=== PATIENT | female | born 1975 | race American Indian/Alaskan Native ===

== ENCOUNTER 2021-03-13 13:46 | Emergency (ER) | payer MEDICARE, SELFPAY ==
[2021-03-13] MEDS ORDERED: ZIPRASIDONE MESYLATE 20 MG VIAL IM ONE (13:52)
--- NOTE | 2021-03-13 13:59 | Emergency Department Report ---
ED Psych HPI - General Chief Complaint: Psych Stated Complaint: MENTAL HEALTH Time Seen by Provider: 03/13/21 13:55 Source: patient Mode of arrival: Ambulatory - History of Present Illness Initial Comments: Patient is 45 years old female with history of bipolar disorder. Patient brought to the emergency room via police department after patient was found walking in traffic. Patient is very agitated with pressured speech. Patient is obviously responding to internal stimuli. Unable to obtain more history from this patient at this moment. Patient received 20 mg of Geodon IM. Complaint: altered mental status -: unknown Associated Psychiatric Symptoms: racing thoughts Treatments Prior to Arrival: placed on mental he - Related Data Home Medications Medication Instructions Recorded Confirmed Last Taken Elderberry Fruit and Flower [Black 1 tab PO DAILY 03/13/21 03/13/21 Unknown Elderberry 575 mg Cap] Ferrous Sulfate [Iron 325 MG] 325 mg PO DAILY 03/13/21 03/13/21 Unknown [place] Carbonate ER [Lithobid ER] 600 mg PO BID 03/13/21 03/13/21 Unknown Prazosin HCl 0.5 mg PO QHS 03/13/21 03/13/21 Unknown diphenhydrAMINE [Benadryl CAP] 25 mg PO Q4H PRN 03/13/21 03/13/21 Unknown Allergies Allergy/AdvReac Type Severity Reaction Status Date / Time nut - unspecified [nut] Allergy Unknown Verified 06/28/15 12:43 ED Review of Systems ROS: Stated complaint: MENTAL HEALTH Other details as noted in HPI Comment: Unobtainable due to pts medical conditions ED Past Medical Hx - Past Medical History Previous Medical History?: Yes Hx Arthritis: Yes Hx Psychiatric Treatment: Yes (Bipolar, PTSD, Anxiety) Additional medical history: lipademia. venous insufficieny - Surgical History Past Surgical History?: Yes Additional Surgical History: Gastric bypass. tonsils. tubiligation - Social History Smoking Status: Current Every Day Smoker Substance Use Type: None - Medications Home Medications: Home Medications Medication Instructions Recorded Confirmed Last Taken Type Elderberry Fruit and Flower [Black 1 tab PO DAILY 03/13/21 03/13/21 Unknown History Elderberry 575 mg Cap] Ferrous Sulfate [Iron 325 MG] 325 mg PO DAILY 03/13/21 03/13/21 Unknown History [place] Carbonate ER [Lithobid ER] 600 mg PO BID 03/13/21 03/13/21 Unknown History Prazosin HCl 0.5 mg PO QHS 03/13/21 03/13/21 Unknown History diphenhydrAMINE [Benadryl CAP] 25 mg PO Q4H PRN 03/13/21 03/13/21 Unknown History ED Physical Exam - General Limitations: Altered Mental Status General appearance: alert, anxious, other (agitated) - Head Head exam: Present: atraumatic, normocephalic, normal inspection - Eye Eye exam: Present: normal appearance - ENT ENT exam: Present: normal exam, normal orophraynx, mucous membranes moist - Neck Neck exam: Present: normal inspection. Absent: tenderness, meningismus - Respiratory Respiratory exam: Present: normal lung sounds bilaterally - Cardiovascular Cardiovascular Exam: Present: regular rate, normal rhythm, normal heart sounds - GI/Abdominal GI/Abdominal exam: Present: soft, normal bowel sounds. Absent: distended, tenderness, guarding, rebound, rigid, organomegaly, mass, bruit, pulsatile mass, hernia - Extremities Exam Extremities exam: Present: normal inspection, full ROM, normal capillary refill. Absent: pedal edema, calf tenderness - Back Exam Back exam: Present: normal inspection, full ROM. Absent: CVA tenderness (R), CVA tenderness (L) - Neurological Exam Neurological exam: Present: alert, CN II-XII intact, normal gait. Absent: motor sensory deficit - Psychiatric Psychiatric exam: Present: agitated, manic - Skin Skin exam: Present: warm, intact, normal color ED Course Vital Signs 03/13/21 03/13/21 03/13/21 13:49 20:49 22:16 Temperature 98 F 97.8 F Pulse Rate 87 63 Respiratory 20 18 18 Rate Blood Pressure 154/82 Blood Pressure 124/97 [Right] O2 Sat by Pulse 96 100 98 Oximetry 03/14/21 03/14/21 03/14/21 01:00 11:37 19:56 Temperature 97.9 F 97.9 F 97.9 F Pulse Rate 76 67 63 Respiratory 18 20 18 Rate Blood Pressure Blood Pressure 136/90 127/90 119/89 [Right] O2 Sat by Pulse 99 100 100 Oximetry 03/15/21 03/15/21 02:05 10:03 Temperature 98.2 F 97.3 F L Pulse Rate 68 83 Respiratory 16 18 Rate Blood Pressure Blood Pressure 112/62 138/94 [Right] O2 Sat by Pulse 100 100 Oximetry ED Medical Decision Making - Lab Data Result diagrams: 03/13/21 14:32 03/14/21 10:52 Critical care attestation.: If time is entered above; I have spent that time in minutes in the direct care of this critically ill patient, excluding procedure time. ED Disposition Clinical Impression: Suicidal ideation Disposition: [id number]/TX-[id number] PSY HOSP/PSY UNIT Is pt being admited?: No Condition: Stable Referrals: PRIMARY CARE, [Primary Care Provider] - 3-5 Days
[2021-03-13 14:52] LABS: Basophils % (Auto) 0.5 % (0.0-1.8); Eosinophils # (Auto) 0.1 K/mm3 (0.0-0.4); Eosinophils % (Auto) 1.8 % (0.0-4.3); Hematocrit 34.9 % (30.3-42.9); Hemoglobin 11.4 gm/dl (10.1-14.3); Lymphocytes # (Auto) 1.7 K/mm3 (1.2-5.4); Lymphocytes % (Auto) 26.5 % (13.4-35.0); Mean Corpuscular HGB Conc 33 % (30-34); Mean Corpuscular Volume 89 fl (79-97); Monocytes # (Auto) 0.4 K/mm3 (0.0-0.8); Monocytes % (Auto) 5.9 % (0.0-7.3); Platelet Count 214 K/mm3 (140-440); Red Blood Count 3.92 M/mm3 (3.65-5.03); Red Cell Distribution Width 15.3 % (13.2-15.2)
[2021-03-13 15:04] LABS: Blood Urea Nitrogen 13 mg/dL (7-17); Calcium 8.9 mg/dL (8.4-10.2); Hemolysis Index 2
[2021-03-13 15:57] LABS: BUN/Creatinine Ratio 22
[2021-03-13 17:37] LABS: Bilirubin,Urine NEG (Negative); Blood,Urine NEG (Negative); Color,Urine Amber (Yellow); Hyaline Casts,Urine 2 /LPF; Mucus,Urine 3+ /HPF
[2021-03-13 17:53] LABS: Amphetamine Screen,Urine PRESUMPTIVE NEGATIVE; Benzodiazepines Screen,Urine PRESUMPTIVE NEGATIVE; Cannabinoid Screen,Urine PRESUMPTIVE NEGATIVE; Cocaine Screen,Urine PRESUMPTIVE NEGATIVE; Methadone Screen,Urine PRESUMPTIVE NEGATIVE; Opiate Screen,Urine PRESUMPTIVE NEGATIVE
[2021-03-13] MEDS ORDERED: HALOPERIDOL LACTATE 5 MG/1 ML INJ IM ONE (21:57)
[2021-03-13] MEDS ORDERED: LORazepam 2 MG/ML VIAL IM STA (21:57)
[2021-03-14] MEDS ORDERED: POTASSIUM CHLORIDE ER 20 MEQ TAB PO ONE ×2 (00:47→05:45)
--- NOTE | 2021-03-14 10:36 | Event Note ---
Date: 03/14/21 Patient is very quiet today. No agitation overnight. Vital signs stable. Labs reviewed and potassium 3.4. Patient received potassium yesterday. Repeat potassium level ordered. Waiting for psychiatric team for disposition.
--- NOTE | 2021-03-14 11:12 | Consultation ---
History of Present Illness - Reason for Consult Consult date: 03/14/21 Reason for consult: agitation - History of Present Psychiatric Illness Per ED Note: Patient is 45 years old female with history of bipolar disorder. Patient brought to the emergency room via police department after patient was found walking in traffic. Patient is very agitated with pressured speech. Patient is obviously responding to internal stimuli. Unable to obtain more history from this patient at this moment. 45y/o Jeremías Zaragoza was seen today, she is agitated, talking loudly and having flight of ideas. She is responding to internal stimuli. Her speech is pressured and disorganized. The patient states that people are pissing her off, she then says "for stuff like this." The patient says "I'm tired of all this stupid stuff that happens from birthday to birthday." She says she's tired of her family trying to tell her what to do and what to say. She says "this hospital and that one over there do this to me all the time." She is pointing at the wall when she says "that hospital." The patient denies SI/HI, stating "I never want to hurt anybody but this type of stuff is getting me real upset. People act like I can't control myself." PAST PSYCHIATRIC HISTORY Diagnoses: bipolar Suicide attempts or Self-harm behavior: Denies Prior psychiatric hospitalizations: Yes Substance Abuse history: Nicotine Previous psychiatric medications tried: unable to answer Outpatient treatment: Yes PAST MEDICAL HISTORY: None reported Family Psychiatric History: None reported or documented SOCIAL HISTORY Marital Status: Single Living Arrangements: states alone Employment Status: disabled Access to guns/weapons: Denies Education: high school History of Abuse: none reported Legal History: none REVIEW OF SYSTEMS Constitutional: Negative for weight loss ENT: Negative for stridor Respiratory: Negative for cough or hemoptysis All other systems reviewed and are negative MENTAL STATUS EXAMINATION General Appearance and Behavior: Age appropriate, not wearing appropriate clothes, poor eye contact, cooperative polite with questioning. Cooperation: Unengaged Psychomotor Behavior: Psychomotor agitation Mood: upset, agitated Affect and affective range: Restricted Thought Process: illogical Thought Content: responding to internal stimuli Speech: Normal tone and pace Suicidal Ideation: Denies Homicidal Ideation: Denies HI Hallucinations: Auditory Delusions: None elicited Insight and Judgment: Impaired insight and judgment Memory: Impaired Attention: Divided attention impaired Orientation: Alert, oriented Assessment: Bipolar Treatment Plan 1013 Start Risperidone 0.5mg po BID Start Depakote DR 125mg po BID Start Trazodone 50mg po qhs Risks, benefits and alternatives of medications discussed with the patient, questions answered and consent obtained from patient. PSYCHOTHERAPY: Supportive psychotherapy provided MEDICAL: Per primary team DELIRIUM PRECAUTIONS: Please re-orient patient frequently, keep lights on during the day, and minimize benzodiazepines and opiates as these medications could worsen patient's confusion. 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 Case discussed with Dr. Cabral who agrees with current disposition FOLLOW-UP: Will follow Thank you for the consult. Please contact with any questions and/or concerns. Medications and Allergies Allergies Allergy/AdvReac Type Severity Reaction Status Date / Time nut - unspecified [nut] Allergy Unknown Verified 06/28/15 12:43 Home Medications Medication Instructions Recorded Confirmed Last Taken Type Elderberry Fruit and Flower [Black 1 tab PO DAILY 03/13/21 03/13/21 Unknown History Elderberry 575 mg Cap] Ferrous Sulfate [Iron 325 MG] 325 mg PO DAILY 03/13/21 03/13/21 Unknown History [place] Carbonate ER [Lithobid ER] 600 mg PO BID 03/13/21 03/13/21 Unknown History Prazosin HCl 0.5 mg PO QHS 03/13/21 03/13/21 Unknown History diphenhydrAMINE [Benadryl CAP] 25 mg PO Q4H PRN 03/13/21 03/13/21 Unknown History Mental Status Exam - Vital signs Last Vital Signs Temp 97.9 F 03/14/21 01:00 Pulse 76 03/14/21 01:00 Resp 18 03/14/21 01:00 BP 136/90 03/14/21 01:00 Pulse Ox 99 03/14/21 01:00 Results Result Diagrams: 03/13/21 14:32 03/13/21 14:32 Abnormal lab results 03/13/21 03/13/21 03/13/21 Range/Units 14:32 14:32 14:32 RDW 15.3 H (13.2-15.2) % Potassium 3.4 L (3.6-5.0) mmol/L Ur Specific [place] (1.003-1.030) Salicylates < 0.3 L (2.8-20.0) mg/dL Acetaminophen (10.0-30.0) ug/mL 03/13/21 03/13/21 Range/Units 14:32 17:07 RDW (13.2-15.2) % Potassium (3.6-5.0) mmol/L Ur Specific [place] 1.032 H (1.003-1.030) Salicylates (2.8-20.0) mg/dL Acetaminophen 5.0 L (10.0-30.0) ug/mL All other labs normal.
[2021-03-14] MEDS: DIVALPROEX DR 125 MG TAB PO SCH ×2 (12:54→21:50)
[2021-03-14] MEDS ORDERED: ZIPRASIDONE MESYLATE 20 MG VIAL IM ONE ×2 (15:28→15:30)
[2021-03-14] MEDS ORDERED: WATER FOR INJ Sterile (PF) 10 ML ONE (15:28)
[2021-03-14] MEDS: risperiDONE 0.25 MG TAB PO SCH (21:48)
[2021-03-14] MEDS ORDERED: traZODone 50 MG TAB PO SCH (22:00)
[2021-03-15 10:03] VITALS: BP 138/94
--- NOTE | 2021-03-15 10:48 | Event Note ---
Date: 03/15/21 No overnight issues. Vital signs stable. Waiting for placement.
--- NOTE | 2021-03-15 11:04 | Progress Note ---
Subjective - Reason for Consult Consult date: 03/15/21 Reason for consult: psychosis - Chief Complaint Chief complaint: The patient was seen today. She is pacing in the [place]. She is delusional and paranoid. Her thoughts are disorganized. 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 Advised the patient that this was a smoke free facility. She says "I know. My thoughts are clear." She denies SI/HI or hallucinations. REVIEW OF SYSTEMS Constitutional: Negative for weight loss ENT: Negative for stridor Respiratory: Negative for cough or hemoptysis All other systems reviewed and are negative MENTAL STATUS EXAMINATION General Appearance and Behavior: Age appropriate, not wearing appropriate clothes, poor eye contact, cooperative polite with questioning. Cooperation: Unengaged Psychomotor Behavior: Psychomotor agitation Mood: upset, agitated Affect and affective range: Restricted Thought Process: illogical Thought Content: responding to internal stimuli Speech: Normal tone and pace Suicidal Ideation: Denies Homicidal Ideation: Denies HI Hallucinations: Auditory Delusions: None elicited Insight and Judgment: Impaired insight and judgment Memory: Impaired Attention: Divided attention impaired Orientation: Alert, oriented Assessment: Bipolar Treatment Plan 1013 Increased Risperidone 1mg po BID Continue Depakote DR 125mg po BID Continue Trazodone 50mg po qhs Risks, benefits and alternatives of medications discussed with the patient, questions answered and consent obtained from patient. PSYCHOTHERAPY: Supportive psychotherapy provided MEDICAL: Per primary team DELIRIUM PRECAUTIONS: Please re-orient patient frequently, keep lights on during the day, and minimize benzodiazepines and opiates as these medications could worsen patient's confusion. 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 Case discussed with Dr. Cabral who agrees with current disposition FOLLOW-UP: Will follow Thank you for the consult. Please contact with any questions and/or concerns. Mental Status Exam - Vital signs Last Vital Signs Temp 97.3 F L 03/15/21 10:03 Pulse 83 03/15/21 10:03 Resp 18 03/15/21 10:03 BP 138/94 03/15/21 10:03 Pulse Ox 100 03/15/21 10:03
[2021-03-15] MEDS: risperiDONE 0.25 MG TAB PO SCH (11:27)
[2021-03-15] MEDS: DIVALPROEX DR 125 MG TAB PO SCH (11:27)
[2021-03-15] MEDS ORDERED: risperiDONE 1 MG TAB PO SCH (12:00)
== END 2021-03-15 14:42 ==
LOC: EEVIPCON 13:46 → ED 13:46
DX: R41.82 Altered mental status, unspecified (principal); R45.1 Restlessness and agitation; Z20.822 Contact with and (suspected) exposure to COVID-19; F31.9 Bipolar disorder, unspecified; F41.9 Anxiety disorder, unspecified; M19.90 Unspecified osteoarthritis, unspecified site; F17.200 Nicotine dependence, unspecified, uncomplicated; Z98.51 Tubal ligation status; Z91.010 Allergy to peanuts; Z98.890 Other specified postprocedural states; Z79.899 Other long term (current) drug therapy
CPT/HCPCS: 36415; 80048; 80307; 81001; 84132; 84703; 85025; 96372; 99285; J1630; J2060; J3486; U0003; 80320; G0480

== ENCOUNTER 2022-02-26 14:57 | Emergency (ER) | payer MEDICARE ==
--- NOTE | 2022-02-26 16:10 | Emergency Department Report ---
ED General Adult HPI - General Chief complaint: Alcohol Stated complaint: LOWER ABD /ALCHOL Time Seen by Provider: 02/26/22 15:56 Source: patient, EMS Mode of arrival: Stretcher Limitations: No Limitations - History of Present Illness Initial comments: The patient presents to the emergency department with a chief complaint of alcohol abuse. Patient states she is here to get detox for alcohol. Patient states she contacted anchor prior to coming and was told to come to the emergency department for clearance. Patient states she drinks 2 bottles of wine daily with the last drink being yesterday. Patient states she has been drinking this quantity for quite some time. She denies visual or auditory loose [place]. Patient also denies chest pain, shortness breath, headache. -: Gradual Severity scale (0 -10): 0 Consistency: constant Improves with: none Worsens with: none Associated Symptoms: denies other symptoms Treatments Prior to Arrival: none - Related Data Home Medications Medication Instructions Recorded Confirmed Last Taken Elderberry Fruit and Flower [Black 1 tab PO DAILY 03/13/21 02/26/22 Unknown Elderberry 575 mg Cap] Ferrous Sulfate [Iron 325 MG] 325 mg PO DAILY 03/13/21 02/26/22 Unknown [place] Carbonate ER [Lithobid ER] 600 mg PO BID 03/13/21 02/26/22 Unknown Prazosin HCl 0.5 mg PO QHS 03/13/21 02/26/22 Unknown diphenhydrAMINE [Benadryl CAP] 25 mg PO Q4H PRN 03/13/21 02/26/22 Unknown Allergies Allergy/AdvReac Type Severity Reaction Status Date / Time nut - unspecified [nut] Allergy Unknown Verified 02/26/22 15:02 ED Review of Systems ROS: Stated complaint: LOWER ABD /ALCHOL Other details as noted in HPI Comment: All other systems reviewed and negative Constitutional: denies: chills, fever Eyes: denies: eye pain, eye discharge, vision change ENT: denies: ear pain, throat pain Respiratory: denies: cough, shortness of breath, wheezing Cardiovascular: denies: chest pain, palpitations Endocrine: no symptoms reported Gastrointestinal: denies: abdominal pain, nausea, diarrhea Genitourinary: denies: urgency, dysuria, discharge Musculoskeletal: denies: back pain, joint swelling, arthralgia Skin: denies: rash, lesions Neurological: denies: headache, weakness, paresthesias Psychiatric: denies: anxiety, depression Hematological/Lymphatic: denies: easy bleeding, easy bruising ED Past Medical Hx - Past Medical History Hx Arthritis: Yes Hx Psychiatric Treatment: Yes (Bipolar, PTSD, Anxiety) Additional medical history: lipademia. venous insufficieny - Surgical History Additional Surgical History: Gastric bypass. tonsils. tubiligation - Social History Smoking Status: Current Every Day Smoker Substance Use Type: Alcohol - Medications Home Medications: Home Medications Medication Instructions Recorded Confirmed Last Taken Type Elderberry Fruit and Flower [Black 1 tab PO DAILY 03/13/21 02/26/22 Unknown History Elderberry 575 mg Cap] Ferrous Sulfate [Iron 325 MG] 325 mg PO DAILY 03/13/21 02/26/22 Unknown History [place] Carbonate ER [Lithobid ER] 600 mg PO BID 03/13/21 02/26/22 Unknown History Prazosin HCl 0.5 mg PO QHS 03/13/21 02/26/22 Unknown History diphenhydrAMINE [Benadryl CAP] 25 mg PO Q4H PRN 03/13/21 02/26/22 Unknown History ED Physical Exam - General Limitations: No Limitations General appearance: alert, in no apparent distress - Head Head exam: Present: atraumatic, normocephalic - Eye Eye exam: Present: normal appearance, PERRL, EOMI - ENT ENT exam: Present: mucous membranes moist - Neck Neck exam: Present: normal inspection - Respiratory Respiratory exam: Present: normal lung sounds bilaterally. Absent: respiratory distress - Cardiovascular Cardiovascular Exam: Present: normal rhythm, tachycardia. Absent: systolic mu rmur, diastolic murmur, rubs, gallop - GI/Abdominal GI/Abdominal exam: Present: soft, normal bowel sounds. Absent: distended, tenderness - Extremities Exam Extremities exam: Present: normal inspection - Back Exam Back exam: Present: normal inspection - Neurological Exam Neurological exam: Present: alert, oriented X3, CN II-XII intact. Absent: motor sensory deficit - Psychiatric Psychiatric exam: Present: normal affect, normal mood - Skin Skin exam: Present: warm, dry, intact, normal color. Absent: rash ED Course Vital Signs 02/26/22 02/26/22 02/26/22 15:01 15:44 15:45 Temperature 98.4 F Pulse Rate 93 H 77 Respiratory 18 Rate Blood Pressure 124/87 Blood Pressure 158/96 [Left] O2 Sat by Pulse 99 99 99 Oximetry ED Medical Decision Making - Lab Data Result diagrams: 02/26/22 16:23 02/26/22 16:23 Lab Results 02/26/22 02/26/22 02/26/22 Range/Units 16:23 16:23 16:23 WBC 9.5 (4.5-11.0) K/mm3 RBC 4.41 (3.65-5.03) M/mm3 Hgb 12.6 (10.1-14.3) gm/dl Hct 39.1 (30.3-42.9) % MCV 89 (79-97) fl MCH 29 (28-32) pg MCHC 32 (30-34) % RDW 17.5 H (13.2-15.2) % Plt Count 144 (140-440) K/mm3 Lymph % (Auto) 15.0 (13.4-35.0) % [place] % (Auto) 5.3 (0.0-7.3) % Eos % (Auto) 0.1 (0.0-4.3) % Baso % (Auto) 0.3 (0.0-1.8) % Lymph # (Auto) 1.4 (1.2-5.4) K/mm3 [place] # (Auto) 0.5 (0.0-0.8) K/mm3 Eos # (Auto) 0.0 (0.0-0.4) K/mm3 Baso # (Auto) 0.0 (0.0-0.1) K/mm3 Seg Neutrophils % 79.3 H (40.0-70.0) % Seg Neutrophils # 7.5 (1.8-7.7) K/mm3 PT (12.2-14.9) Sec. INR (0.87-1.13) APTT (24.2-36.6) Sec. Sodium 135 L (137-145) mmol/L Potassium 4.2 (3.6-5.0) mmol/L Chloride 92.0 L (98-107) mmol/L Carbon Dioxide 23 (22-30) mmol/L Anion Gap 24 mmol/L BUN 10 (7-17) mg/dL Creatinine 0.6 (0.6-1.2) mg/dL Estimated GFR > 60 ml/min BUN/Creatinine Ratio 17 % Glucose 94 (65-100) mg/dL Calcium 9.4 (8.4-10.2) mg/dL Magnesium (1.7-2.3) mg/dL Total Bilirubin 0.80 (0.1-1.2) mg/dL AST 37 (5-40) units/L ALT 26 (7-56) units/L Alkaline Phosphatase 121 (35-129) units/L Total Protein 7.5 (6.3-8.2) g/dL Albumin 5.0 (3.9-5) g/dL Albumin/Globulin Ratio 2.0 % Lipase (13-60) units/L Plasma/Serum Alcohol 0.03 (0-0.07) % 02/26/22 02/26/22 Range/Units 16:23 16:23 WBC (4.5-11.0) K/mm3 RBC (3.65-5.03) M/mm3 Hgb (10.1-14.3) gm/dl Hct (30.3-42.9) % MCV (79-97) fl MCH (28-32) pg MCHC (30-34) % RDW (13.2-15.2) % Plt Count (140-440) K/mm3 Lymph % (Auto) (13.4-35.0) % [place] % (Auto) (0.0-7.3) % Eos % (Auto) (0.0-4.3) % Baso % (Auto) (0.0-1.8) % Lymph # (Auto) (1.2-5.4) K/mm3 [place] # (Auto) (0.0-0.8) K/mm3 Eos # (Auto) (0.0-0.4) K/mm3 Baso # (Auto) (0.0-0.1) K/mm3 Seg Neutrophils % (40.0-70.0) % Seg Neutrophils # (1.8-7.7) K/mm3 PT 13.4 (12.2-14.9) Sec. INR 0.92 (0.87-1.13) APTT 26.3 (24.2-36.6) Sec. Sodium (137-145) mmol/L Potassium (3.6-5.0) mmol/L Chloride (98-107) mmol/L Carbon Dioxide (22-30) mmol/L Anion Gap mmol/L BUN (7-17) mg/dL Creatinine (0.6-1.2) mg/dL Estimated GFR ml/min BUN/Creatinine Ratio % Glucose (65-100) mg/dL Calcium (8.4-10.2) mg/dL Magnesium 2.00 (1.7-2.3) mg/dL Total Bilirubin (0.1-1.2) mg/dL AST (5-40) units/L ALT (7-56) units/L Alkaline Phosphatase (35-129) units/L Total Protein (6.3-8.2) g/dL Albumin (3.9-5) g/dL Albumin/Globulin Ratio % Lipase 19 (13-60) units/L Plasma/Serum Alcohol (0-0.07) % - Medical Decision Making Discussed results with patient Critical care attestation.: If time is entered above; I have spent that time in minutes in the direct care o f this critically ill patient, excluding procedure time. ED Disposition Clinical Impression: Alcohol abuse Disposition: 01 HOME / SELF CARE / HOMELESS Is pt being admited?: No Does the pt Need Aspirin: No Condition: Stable Instructions: Alcohol Use Disorder, Alcohol Abuse and Nutrition Additional Instructions: Return if worse You have been cleared and may go to [place] for detox Referrals: JEET EUBANKS MD [Primary Care Provider] - 3-5 Days Time of Disposition: 19:02
--- NOTE | 2022-02-26 16:35 | XRay Report ---
CHEST 1 VIEW INDICATION: Alcohol Intoxication. COMPARISON: None FINDINGS: Support devices: None. Heart: Within normal limits. Lungs/Pleura: No acute air space or interstitial disease. No pleural abnormality or pneumothorax. Additional findings: None. IMPRESSION: No acute findings. Signer Name: Arun Malave Jr, MD Signed: 02/26/2022 4:31 PM Workstation Name: [id number]
[2022-02-26 17:01] LABS: Basophils % (Auto) 0.3 % (0.0-1.8); Eosinophils % (Auto) 0.1 % (0.0-4.3); Hematocrit 39.1 % (30.3-42.9); Hemoglobin 12.6 gm/dl (10.1-14.3); Lymphocytes # (Auto) 1.4 K/mm3 (1.2-5.4); Mean Corpuscular HGB Conc 32 % (30-34); Mean Corpuscular Volume 89 fl (79-97); Monocytes # (Auto) 0.5 K/mm3 (0.0-0.8); Monocytes % (Auto) 5.3 % (0.0-7.3); Platelet Count 144 K/mm3 (140-440); Red Blood Count 4.41 M/mm3 (3.65-5.03); Red Cell Distribution Width 17.5 % (13.2-15.2)
[2022-02-26 17:11] LABS: Alanine Aminotransferase 26 units/L (7-56); BUN/Creatinine Ratio 17; Blood Urea Nitrogen 10 mg/dL (7-17); Calcium 9.4 mg/dL (8.4-10.2); Hemolysis Index 7
[2022-02-26 17:16] LABS: INR 0.92 (0.87-1.13)
[2022-02-26 17:17] LABS: Partial Thromboplastin Time 26.3 Sec. (24.2-36.6)
[2022-02-26 19:38] VITALS: BP 129/89
== END 2022-02-26 19:38 | disposition home or self-care (01) ==
LOC: ED 14:57
DX: F10.10 Alcohol abuse, uncomplicated (principal); F17.200 Nicotine dependence, unspecified, uncomplicated; F31.9 Bipolar disorder, unspecified; Z91.010 Allergy to peanuts
CPT/HCPCS: 36415; 71045; 80053; 80320; 83690; 83735; 85025; 85610; 85730; 99284; G0480

== ENCOUNTER 2022-06-30 13:50 | Emergency (ER) | payer MEDICARE ==
[2022-06-30 16:40] LABS: Basophils % (Auto) 0.2 % (0.0-1.8); Eosinophils % (Auto) 0.2 % (0.0-4.3); Hematocrit 41.9 % (30.3-42.9); Hemoglobin 13.7 gm/dl (10.1-14.3); Lymphocytes # (Auto) 1.6 K/mm3 (1.2-5.4); Lymphocytes % (Auto) 23.2 % (13.4-35.0); Mean Corpuscular HGB Conc 33 % (30-34); Mean Corpuscular Volume 90 fl (79-97); Monocytes # (Auto) 0.3 K/mm3 (0.0-0.8); Monocytes % (Auto) 4.6 % (0.0-7.3); Platelet Count 130 K/mm3 (140-440); Red Blood Count 4.65 M/mm3 (3.65-5.03); Red Cell Distribution Width 17.3 % (13.2-15.2)
[2022-06-30 17:07] LABS: BUN/Creatinine Ratio 11; Blood Urea Nitrogen 10 mg/dL (7-17); Calcium 10.5 mg/dL (8.4-10.2); Hemolysis Index 29
[2022-06-30 19:06] LABS: Bacteria,Urine 1+ /HPF (Negative); Mucus,Urine FEW /HPF
[2022-06-30 19:13] LABS: Amphetamine Screen,Urine Negative; Benzodiazepines Screen,Urine Negative; Cannabinoid Screen,Urine Negative; Cocaine Screen,Urine Negative; Methadone Screen,Urine Negative; Opiate Screen,Urine Negative
[2022-06-30 19:14] LABS: Color,Urine Yellow (Yellow)
[2022-07-01] MEDS ORDERED: LORazepam 2 MG/ML VIAL IV PRN ×2 (13:59)
[2022-07-01] MEDS ORDERED: THIAMINE 100 MG, FOLIC ACID 1 MG, MULTIPLE VITAMIN INJ, ADULT 10 ML in SODIUM CHLORIDE ... IV ONE (13:59)
[2022-07-01] MEDS ORDERED: ONDANSETRON 4 MG/2 ML INJ IV ONE (13:59)
[2022-07-01] MEDS ORDERED: NICOTINE 14 MG/24 HR PATCH TD ONE (14:49)
[2022-07-01 15:00] LABS: Alanine Aminotransferase 49 units/L (7-56); Albumin 5.4 g/dL (3.9-5); Bilirubin,Direct 0.2 mg/dL (0-0.2)
[2022-07-01] MEDS ORDERED: NICOTINE 14 MG/24 HR PATCH TD NR (15:00)
[2022-07-01] MEDS ORDERED: NITROFURANTOIN MONOHYD/M-CRYST 100 MG CAP PO ONE (15:06)
--- NOTE | 2022-07-01 15:07 | Emergency Department Report ---
ED Alcohol HPI - General Chief Complaint: Alcohol Stated Complaint: MEDICAL CLEARANCE Time Seen by Provider: 07/01/22 13:41 Source: patient Mode of arrival: Ambulatory Limitations: No Limitations - History of Present Illness Initial Comments: 47-year female the past medical history of bipolar disorder, PTSD, alcohol abuse, previous gastric bypass, and tubal ligation presents to the hospital requesting medical clearance and noted to be admitted to [facility] program for alcohol abuse treatment. Patient drinks wine daily. Last drink was yesterday prior to ED arrival. Patient has a history of alcohol withdrawal tremors but denies feeling tremulous at this time. She does have several physical complaint Patient complains of diagnosis of strep throat several days ago but states she was drinking alcohol while taking antibiotics and feels that they might have been affected. She continues to have URI symptoms including a sore throat, ru nny nose, and mild cough without reported fever. She complains of anterior chest wall pain which is reproducible with palpation and movement. She also complains of spasms to her upper abdominal pain with intermittent nausea and vomiting. Patient states she was once admitted for heart issues/evaluation but denies having cardiac cath, bypass surgery, angioplasty, or stents in her heart. Patient denies suicidal ideation, homicidal ideation, or psychosis at this time - Related Data Home Medications Medication Instructions Recorded Confirmed Last Taken Elderberry Fruit and Flower [Black 1 tab PO DAILY 03/13/21 02/26/22 Unknown Elderberry 575 mg Cap] Ferrous Sulfate [Iron 325 MG] 325 mg PO DAILY 03/13/21 02/26/22 Unknown [place] Carbonate ER [Lithobid ER] 600 mg PO BID 03/13/21 02/26/22 Unknown Prazosin HCl 0.5 mg PO QHS 03/13/21 02/26/22 Unknown diphenhydrAMINE [Benadryl CAP] 25 mg PO Q4H PRN 03/13/21 02/26/22 Unknown Allergies Allergy/AdvReac Type Severity Reaction Status Date / Time nut - unspecified [nut] Allergy Unknown Verified 02/26/22 15:02 ED Review of Systems ROS: Stated complaint: MEDICAL CLEARANCE Other details as noted in HPI Comment: All other systems reviewed and negative ED Past Medical Hx - Past Medical History Previous Medical History?: Yes Hx Arthritis: Yes Hx Psychiatric Treatment: Yes (Bipolar, PTSD, Anxiety, ETOH abuse) Additional medical history: lipademia. venous insufficieny - Surgical History Past Surgical History?: Yes Additional Surgical History: Gastric bypass. tonsils. tubiligation - Social History Smoking Status: Current Every Day Smoker Substance Use Type: Alcohol - Medications Home Medications: Home Medications Medication Instructions Recorded Confirmed Last Taken Type Elderberry Fruit and Flower [Black 1 tab PO DAILY 03/13/21 02/26/22 Unknown History Elderberry 575 mg Cap] Ferrous Sulfate [Iron 325 MG] 325 mg PO DAILY 03/13/21 02/26/22 Unknown History [place] Carbonate ER [Lithobid ER] 600 mg PO BID 03/13/21 02/26/22 Unknown History Prazosin HCl 0.5 mg PO QHS 03/13/21 02/26/22 Unknown History diphenhydrAMINE [Benadryl CAP] 25 mg PO Q4H PRN 03/13/21 02/26/22 Unknown History ED Physical Exam - General Limitations: No Limitations - Other Other exam information: General: No acute distress Head: Atraumatic Eyes: normal appearance ENT: Moist mucous membranes, no erythema or posterior pharyngeal exudate Neck: Normal appearance, no midline tenderness Chest: Clear to auscultation bilaterally, bilateral lower rib tenderness and anterior chest wall tenderness to palpate CV: Regular rate and rhythm Abdomen: Soft, normal bowel sounds, nontender, nondistended, no rebound or guarding Back: Normal inspection Extremity: Normal inspection, full range of motion, no tremor Neuro: Alert O x 3, no facial asymmetry, speech clear, no gross motor sensory deficit Psych: Appropriate behavior Skin: No rash ED Course Vital Signs 07/01/22 07/01/22 11:42 16:31 Temperature 98.1 F Pulse Rate 115 H 66 Respiratory 18 16 Rate Blood Pressure 135/108 132/86 [Right] O2 Sat by Pulse 100 96 Oximetry ED Medical Decision Making - Lab Data Result diagrams: 06/30/22 16:17 06/30/22 16:09 Lab Results 06/30/22 06/30/22 06/30/22 Range/Units 16:09 16:09 16:09 WBC (4.5-11.0) K/mm3 RBC (3.65-5.03) M/mm3 Hgb (10.1-14.3) gm/dl Hct (30.3-42.9) % MCV (79-97) fl MCH (28-32) pg MCHC (30-34) % RDW (13.2-15.2) % Plt Count (140-440) K/mm3 Lymph % (Auto) (13.4-35.0) % [place] % (Auto) (0.0-7.3) % Eos % (Auto) (0.0-4.3) % Baso % (Auto) (0.0-1.8) % Lymph # (Auto) (1.2-5.4) K/mm3 [place] # (Auto) (0.0-0.8) K/mm3 Eos # (Auto) (0.0-0.4) K/mm3 Baso # (Auto) (0.0-0.1) K/mm3 Seg Neutrophils % (40.0-70.0) % Seg Neutrophils # (1.8-7.7) K/mm3 Sodium 131 L (137-145) mmol/L Potassium 4.5 (3.6-5.0) mmol/L Chloride 87.5 L (98-107) mmol/L Carbon Dioxide 24 (22-30) mmol/L Anion Gap 24 mmol/L BUN 10 (7-17) mg/dL Creatinine 0.9 (0.6-1.2) mg/dL Estimated GFR > 60 ml/min BUN/Creatinine Ratio 11 % Glucose 106 H (65-100) mg/dL Calcium 10.5 H (8.4-10.2) mg/dL Magnesium (1.7-2.3) mg/dL Total Bilirubin (0.1-1.2) mg/dL Direct Bilirubin (0-0.2) mg/dL Indirect Bilirubin mg/dL AST (5-40) units/L ALT (7-56) units/L Alkaline Phosphatase (35-129) units/L Troponin T (0.00-0.029) ng/mL Total Protein (6.3-8.2) g/dL Albumin (3.9-5) g/dL Albumin/Globulin Ratio % Lipase (13-60) units/L HCG, Qual (Negative) Urine Color (Yellow) Urine Turbidity (Clear) Specific [place] (Man) (1.003-1.030) Ur Protein (Man) (Negative) mg/dL Ur Ketones (Man) (Negative) Ur Nitrite (Man) (Negative) Ur Reducing Substances Urine Bilirubin (Man) (Negative) Urine Ictotest Leukocyte Esterase (Man) (Negative) Urine WBC (Auto) (0.0-6.0) /HPF Urine RBC (Auto) (0.0-6.0) /HPF U Epithel Cells (Auto) (0-13.0) /HPF Urine Bacteria (Auto) (Negative) /HPF Urine RBC (Manual) (Negative) Urine Mucus /HPF Salicylates < 0.3 L (2.8-20.0) mg/dL Urine Opiates Screen Urine Methadone Screen Acetaminophen 5.0 L (10.0-30.0) ug/mL Ur Barbiturates Screen Ur Phencyclidine Scrn Ur Amphetamines Screen U Benzodiazepines Scrn Urine Cocaine Screen U Marijuana (THC) Screen Drugs of Abuse Note Plasma/Serum Alcohol (0-0.07) % Group A Strep Rapid (Negative) 06/30/22 06/30/22 06/30/22 Range/Units 16:09 16:17 Unknown WBC 6.8 (4.5-11.0) K/mm3 RBC 4.65 (3.65-5.03) M/mm3 Hgb 13.7 (10.1-14.3) gm/dl Hct 41.9 (30.3-42.9) % MCV 90 (79-97) fl MCH 30 (28-32) pg MCHC 33 (30-34) % RDW 17.3 H (13.2-15.2) % Plt Count 130 L (140-440) K/mm3 Lymph % (Auto) 23.2 (13.4-35.0) % [place] % (Auto) 4.6 (0.0-7.3) % Eos % (Auto) 0.2 (0.0-4.3) % Baso % (Auto) 0.2 (0.0-1.8) % Lymph # (Auto) 1.6 (1.2-5.4) K/mm3 [place] # (Auto) 0.3 (0.0-0.8) K/mm3 Eos # (Auto) 0.0 (0.0-0.4) K/mm3 Baso # (Auto) 0.0 (0.0-0.1) K/mm3 Seg Neutrophils % 71.8 H (40.0-70.0) % Seg Neutrophils # 4.9 (1.8-7.7) K/mm3 Sodium (137-145) mmol/L Potassium (3.6-5.0) mmol/L Chloride (98-107) mmol/L Carbon Dioxide (22-30) mmol/L Anion Gap mmol/L BUN (7-17) mg/dL Creatinine (0.6-1.2) mg/dL Estimated GFR ml/min BUN/Creatinine Ratio % Glucose (65-100) mg/dL Calcium (8.4-10.2) mg/dL Magnesium (1.7-2.3) mg/dL Total Bilirubin (0.1-1.2) mg/dL Direct Bilirubin (0-0.2) mg/dL Indirect Bilirubin mg/dL AST (5-40) units/L ALT (7-56) units/L Alkaline Phosphatase (35-129) units/L Troponin T (0.00-0.029) ng/mL Total Protein (6.3-8.2) g/dL Albumin (3.9-5) g/dL Albumin/Globulin Ratio % Lipase (13-60) units/L HCG, Qual (Negative) Urine Color Yellow (Yellow) Urine Turbidity Hazy (Clear) Specific [place] (Man) 1.015 (1.003-1.030) Ur Protein (Man) 2+ (Negative) mg/dL Ur Ketones (Man) 1+ (Negative) Ur Nitrite (Man) Negative (Negative) Ur Reducing Substances Not Reportable Urine Bilirubin (Man) Negative (Negative) Urine Ictotest Not Reportable Leukocyte Esterase (Man) Negative (Negative) Urine WBC (Auto) 11.0 H (0.0-6.0) /HPF Urine RBC (Auto) 8.0 (0.0-6.0) /HPF U Epithel Cells (Auto) 9.0 (0-13.0) /HPF Urine Bacteria (Auto) 1+ (Negative) /HPF Urine RBC (Manual) Trace (Negative) Urine Mucus Few /HPF Salicylates (2.8-20.0) mg/dL Urine Opiates Screen Urine Methadone Screen Acetaminophen (10.0-30.0) ug/mL Ur Barbiturates Screen Ur Phencyclidine Scrn Ur Amphetamines Screen U Benzodiazepines Scrn Urine Cocaine Screen U Marijuana (THC) Screen Drugs of Abuse Note Plasma/Serum Alcohol < 0.01 (0-0.07) % Group A Strep Rapid (Negative) 06/30/22 07/01/22 07/01/22 Range/Units Unknown 13:57 16:25 WBC (4.5-11.0) K/mm3 RBC (3.65-5.03) M/mm3 Hgb (10.1-14.3) gm/dl Hct (30.3-42.9) % MCV (79-97) fl MCH (28-32) pg MCHC (30-34) % RDW (13.2-15.2) % Plt Count (140-440) K/mm3 Lymph % (Auto) (13.4-35.0) % [place] % (Auto) (0.0-7.3) % Eos % (Auto) (0.0-4.3) % Baso % (Auto) (0.0-1.8) % Lymph # (Auto) (1.2-5.4) K/mm3 [place] # (Auto) (0.0-0.8) K/mm3 Eos # (Auto) (0.0-0.4) K/mm3 Baso # (Auto) (0.0-0.1) K/mm3 Seg Neutrophils % (40.0-70.0) % Seg Neutrophils # (1.8-7.7) K/mm3 Sodium (137-145) mmol/L Potassium (3.6-5.0) mmol/L Chloride (98-107) mmol/L Carbon Dioxide (22-30) mmol/L Anion Gap mmol/L BUN (7-17) mg/dL Creatinine (0.6-1.2) mg/dL Estimated GFR ml/min BUN/Creatinine Ratio % Glucose (65-100) mg/dL Calcium (8.4-10.2) mg/dL Magnesium 2.00 (1.7-2.3) mg/dL Total Bilirubin 0.90 (0.1-1.2) mg/dL Direct Bilirubin 0.2 (0-0.2) mg/dL Indirect Bilirubin 0.7 mg/dL AST 73 H (5-40) units/L ALT 49 (7-56) units/L Alkaline Phosphatase 142 H (35-129) units/L Troponin T < 0.010 (0.00-0.029) ng/mL Total Protein 7.7 (6.3-8.2) g/dL Albumin 5.4 H (3.9-5) g/dL Albumin/Globulin Ratio 2.3 % Lipase 51 (13-60) units/L HCG, Qual (Negative) Urine Color (Yellow) Urine Turbidity (Clear) Specific [place] (Man) (1.003-1.030) Ur Protein (Man) (Negative) mg/dL Ur Ketones (Man) (Negative) Ur Nitrite (Man) (Negative) Ur Reducing Substances Urine Bilirubin (Man) (Negative) Urine Ictotest Leukocyte Esterase (Man) (Negative) Urine WBC (Auto) (0.0-6.0) /HPF Urine RBC (Auto) (0.0-6.0) /HPF U Epithel Cells (Auto) (0-13.0) /HPF Urine Bacteria (Auto) (Negative) /HPF Urine RBC (Manual) (Negative) Urine Mucus /HPF Salicylates (2.8-20.0) mg/dL Urine Opiates Screen Negative Urine Methadone Screen Negative Acetaminophen (10.0-30.0) ug/mL Ur Barbiturates Screen Negative Ur Phencyclidine Scrn Negative Ur Amphetamines Screen Negative U Benzodiazepines Scrn Negative Urine Cocaine Screen Negative U Marijuana (THC) Screen Negative Drugs of Abuse Note Disclamer Plasma/Serum Alcohol (0-0.07) % Group A Strep Rapid Negative (Negative) 07/01/22 Range/Units Unknown WBC (4.5-11.0) K/mm3 RBC (3.65-5.03) M/mm3 Hgb (10.1-14.3) gm/dl Hct (30.3-42.9) % MCV (79-97) fl MCH (28-32) pg MCHC (30-34) % RDW (13.2-15.2) % Plt Count (140-440) K/mm3 Lymph % (Auto) (13.4-35.0) % [place] % (Auto) (0.0-7.3) % Eos % (Auto) (0.0-4.3) % Baso % (Auto) (0.0-1.8) % Lymph # (Auto) (1.2-5.4) K/mm3 [place] # (Auto) (0.0-0.8) K/mm3 Eos # (Auto) (0.0-0.4) K/mm3 Baso # (Auto) (0.0-0.1) K/mm3 Seg Neutrophils % (40.0-70.0) % Seg Neutrophils # (1.8-7.7) K/mm3 Sodium (137-145) mmol/L Potassium (3.6-5.0) mmol/L Chloride (98-107) mmol/L Carbon Dioxide (22-30) mmol/L Anion Gap mmol/L BUN (7-17) mg/dL Creatinine (0.6-1.2) mg/dL Estimated GFR ml/min BUN/Creatinine Ratio % Glucose (65-100) mg/dL Calcium (8.4-10.2) mg/dL Magnesium (1.7-2.3) mg/dL Total Bilirubin (0.1-1.2) mg/dL Direct Bilirubin (0-0.2) mg/dL Indirect Bilirubin mg/dL AST (5-40) units/L ALT (7-56) units/L Alkaline Phosphatase (35-129) units/L Troponin T (0.00-0.029) ng/mL Total Protein (6.3-8.2) g/dL Albumin (3.9-5) g/dL Albumin/Globulin Ratio % Lipase (13-60) units/L HCG, Qual Negative (Negative) Urine Color (Yellow) Urine Turbidity (Clear) Specific [place] (Man) (1.003-1.030) Ur Protein (Man) (Negative) mg/dL Ur Ketones (Man) (Negative) Ur Nitrite (Man) (Negative) Ur Reducing Substances Urine Bilirubin (Man) (Negative) Urine Ictotest Leukocyte Esterase (Man) (Negative) Urine WBC (Auto) (0.0-6.0) /HPF Urine RBC (Auto) (0.0-6.0) /HPF U Epithel Cells (Auto) (0-13.0) /HPF Urine Bacteria (Auto) (Negative) /HPF Urine RBC (Manual) (Negative) Urine Mucus /HPF Salicylates (2.8-20.0) mg/dL Urine Opiates Screen Urine Methadone Screen Acetaminophen (10.0-30.0) ug/mL Ur Barbiturates Screen Ur Phencyclidine Scrn Ur Amphetamines Screen U Benzodiazepines Scrn Urine Cocaine Screen U Marijuana (THC) Screen Drugs of Abuse Note Plasma/Serum Alcohol (0-0.07) % Group A Strep Rapid (Negative) - EKG Data -: EKG Interpreted by Me EKG shows normal: sinus rhythm, ST-T waves (no stemi) Rate: normal - Radiology Data Radiology results: report reviewed CHEST 2 VIEWS INDICATION / CLINICAL INFORMATION: CHEST PAIN URI SX. COMPARISON: 02/26/2022 FINDINGS: SUPPORT DEVICES: None. HEART / MEDIASTINUM: No significant abnormality. LUNGS / PLEURA: No significant pulmonary or pleural abnormality. No pneumothorax. ADDITIONAL FINDINGS: No significant additional findings. IMPRESSION: 1. No acute findings. - Medical Decision Making 47-year-old female with alcohol abuse presents to the hospital with multiple complaints including URI symptoms, vomiting, and chest wall tenderness. ED work-up. Patient requesting medical clearance for alcohol treatment. ED work- up unremarkable. Patient will be discharged with paperwork for medical clearance Critical Care Time: No Critical care attestation.: If time is entered above; I have spent that time in minutes in the direct care of this critically ill patient, excluding procedure time. ED Disposition Clinical Impression: Alcohol abuse, Chest wall tenderness, URI (upper respiratory infection) Disposition: HOME / SELF CARE / HOMELESS Is pt being admited?: No Does the pt Need Aspirin: No Condition: Stable Instructions: Alcohol Abuse and Dependence Information, Adult, Upper Respiratory Infection, Adult, Chest Wall Pain, [id number] Additional Instructions: Go immediately to [facility] for for alcohol abuse treatment. Tylenol or Motrin as needed for pain. Return if symptoms worsen as indicated by your discharge instructions Referrals: PRIMARY CARE, [Primary Care Provider] - 3-5 Days [facility] [Provider Group] - 3-5 Days [facility] [Other] - 07/01/22
--- NOTE | 2022-07-01 15:17 | XRay Report ---
CHEST 2 VIEWS INDICATION / CLINICAL INFORMATION: CHEST PAIN URI SX. COMPARISON: 02/26/2022 FINDINGS: SUPPORT DEVICES: None. HEART / MEDIASTINUM: No significant abnormality. LUNGS / PLEURA: No significant pulmonary or pleural abnormality. No pneumothorax. ADDITIONAL FINDINGS: No significant additional findings. IMPRESSION: 1. No acute findings. Signer Name: Gerry Perry MD Signed: 07/01/2022 3:13 PM Workstation Name: [id number]
[2022-07-01 18:31] VITALS: BP 132/76
--- NOTE | 2022-07-03 09:42 | Electrocardiograph Report ---
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
== END 2022-07-01 18:57 | disposition home or self-care (01) ==
LOC: ED 13:50
DX: J06.9 Acute upper respiratory infection, unspecified (principal); F10.10 Alcohol abuse, uncomplicated; R07.9 Chest pain, unspecified; M19.90 Unspecified osteoarthritis, unspecified site; F31.9 Bipolar disorder, unspecified; F17.200 Nicotine dependence, unspecified, uncomplicated; Z91.018 Allergy to other foods; Z79.899 Other long term (current) drug therapy
CPT/HCPCS: 36415; 71046; 80048; 80076; 80307; 81001; 83690; 83735; 84484; 84703; 85025; 87086; 87116; 87430; 93005; 96365; 96375; 99284; J2060; J2405; J3411; J3490; J7030; 80320; G0480